=== PATIENT | male | born 1970 | race Caucasian/White ===

== ENCOUNTER 2017-08-10 09:13 | Observation (INO) ==
--- NOTE | 2017-08-10 09:20 | Emergency Department Note ---
Disposition Clinical Impression: Acute exacerbation of chronic obstructive airways disease Disposition: Home, Self-Care Condition: Fair Referrals: NONE,PCP [Primary Care Provider] - Forms: ED Satisfaction Letter SOB HPI - General Chief Complaint: ED Shortness of Breath/Dyspnea Stated Complaint: SOB/cough Time Seen by Provider: 08/10/17 09:15 Source: patient Mode of arrival: private vehicle Limitations: no limitations Nursing Notes Reviewed: Yes Vital Signs Reviewed: Yes - History of Present Illness The patient relates he started on Thursday, 2 days ago, shortness of breath and cough. The cough has remained nonproductive but is described as deep and rattling. He states he has a rattle more on the right side and he "sounds like a Lion" when he is breathing and laying on his right side. Relates he does have a history of COPD, asthma as well as CHF. He is diabetic and his blood sugars were 97 this morning. He has been doing some aerosols at home about every 6 hours without much relief. He states he just had his flu shot on August 04. Denies any known change in weight or any leg swelling. He thinks his feet might develop a little puffy this morning. He states he has had some chills and sweats but no definite fevers. He did have some nausea and vomited twice on Thursday. He has not been having abdominal pain or diarrhea. He denies any chest pain other than feeling as if his right chest is "on fire" when he coughs. He denies any ill exposures or exposure to respiratory irritant. He has not been having jaw, back or arm pain. He denies any recent change in medications. Pt Subjective Complaint: shortness of breath, cough Onset (ago): day(s) (2) Context: recent illness Severity: moderate, severe Consistency/Duration: gradually worsening Improves with: rest, bronchodilators Worsens with: exertion, coughing Known history of: COPD, asthma, congestive heart failure, diabetes Associated symptoms: Reports: chest pain (Burning in the right chest with the cough or deep breath), pain with inspiration, cough, wheezing, nausea/vomiting ( Thursday). Denies: fever, sputum production (Deep rattling), orthopnea, lower extremity pain, polyuria, polydipsia, parasthesias, palpitations, hemoptysis, diaphoresis, syncope, abdominal pain, rash Treatment prior to arrival: bronchodilator Cough present: Yes Cough Description: Voluntary, Non-Productive, Hacking, Rattling, Wheezy Cough Frequency: Intermittent Sputum production: No - Related Data Home oxygen amount: none Home Medications Medication Instructions Recorded Confirmed Albuterol Sulfate [Albuterol 2 puff IH Q4H PRN 06/01/15 08/10/17 Inhaler] Allopurinol [Zyloprim 100 MG] 100 mg PO BID 06/01/15 08/10/17 Atorvastatin [Lipitor] 20 mg PO HS 06/01/15 08/10/17 Lisinopril [Zestril] 20 mg PO DAILY 06/01/15 08/10/17 Metformin [Glucophage] 1,000 mg PO BIDWM 06/01/15 08/10/17 Metoprolol [Lopressor] 50 mg PO BID 06/01/15 08/10/17 Multivitamin/Iron/Folic Acid 1 each PO DAILY 06/01/15 08/10/17 [Centrum Complete Multivit Tab] Potassium Chloride 20 meq PO DAILY 06/01/15 08/10/17 Pregabalin [Lyrica] 150 mg PO BID 06/01/15 08/10/17 Oxycodone HCl/Acetaminophen 1 each PO TID PRN 10/19/16 08/10/17 [Percocet 7.5-325 mg Tablet] Fluticasone/Salmeterol [Advair 1 each IH BID 11/21/16 08/10/17 250-50 Diskus] Furosemide [Lasix] 20 mg PO BID 11/21/16 08/10/17 Tiotropium [Spiriva] 18 mcg IH DAILY 11/21/16 08/10/17 Trazodone HCl 150 mg PO HS 11/21/16 08/10/17 FentaNYL PATCH [Duragesic] 75 mcg TD Q72H 08/10/17 08/10/17 Allergies Allergy/AdvReac Type Severity Reaction Status Date / Time hydrocodone [From Lortab] AdvReac Vomiting Verified 01/04/17 15:08 morphine AdvReac Headache Verified 01/04/17 15:08 NSAIDS (Non-Steroidal AdvReac Nausea Verified 01/04/17 15:08 Anti-Inflamma All systems ED: reviewed and negative except as stated. Past Medical History - Past Medical History Attestation: Yes The following information was validated with the patient. Source: patient, old records reviewed, nursing notes reviewed Medical history: Reports: asthma, CHF, COPD, diabetes, hyperlipidemia, hypertension, kidney stones, renal disease, other Surgical history: Reports: other Psychiatric history: Reports: anxiety, depression, panic disorder, PTSD - Social History Smoking Status: Never smoker Smokeless Tobacco Status: No Alcohol use: Reports: none Drug use: Reports: none Physical Exam - General Limitations: no limitations General appearance: alert, in no apparent distress - Head Head exam: atraumatic, normocephalic, normal inspection - Eye Eye exam: Present: normal appearance, PERRL, EOMI. Absent: scleral icterus, conjunctival injection - ENT ENT exam: normal exam, normal oropharynx, mucous membranes moist - Neck Neck exam: Present: normal inspection, full ROM, trachea midline - Chest Chest inspection: Present: normal inspection, symmetric chest wall rise. Absent : tenderness - Respiratory Respiratory exam: Present: wheezes, prolonged expiratory phase. Absent: respiratory distress, accessory muscle use - Cardiovascular Cardiovascular exam: Present: regular rate, normal rhythm, normal heart sounds. Absent: tachycardia - Abdominal Exam Abdominal exam: Present: soft, Non-Tender, normal bowel sounds. Absent: tenderness, distention, guarding, rebound, rigidity - Extremities Exam Extremities exam: Present: normal inspection, full ROM, normal capillary refill. Absent: tenderness, pedal edema, calf tenderness - Expanded Lower Extremity Exam Neurovascular/Tendon exam: Present: normal capillary refill. Absent: motor deficit, sensory deficit, tendon deficit Gait: observed and normal - Back Exam Back exam: Present: normal inspection, full ROM. Absent: tenderness - Neurological Exam Neurological exam: Present: alert, oriented X3 - Psychiatric Psychiatric exam: Present: normal affect, normal mood - Skin Skin exam: Present: warm, dry, intact, normal color. Absent: cyanosis, diaphoresis, pallor Course Course Narrative: 1015: With return of lab, EKG and imaging care has been discussed with the patient. He is feeling no better after aerosols and Solu-Medrol. He was saturating 90% on room air while talking with them. At this point I believe he will continued to desaturate and have significant dyspnea and hypoxia if we discharge him to home. He has been started on Rocephin, azithromycin and IV fluids. I have placed a page to Dr. Ellison to help with his patient observation and respiratory treatment. Vital Signs Temperature 98.0 F 08/10/17 09:15 Pulse Rate 86 08/10/17 09:15 Respiratory Rate 20 08/10/17 09:15 Blood Pressure 143/81 08/10/17 09:15 O2 Sat by Pulse Oximetry 98 08/10/17 09:15 Temperature 98.0 F 08/10/17 09:15 Pulse Rate 78 08/10/17 10:07 Respiratory Rate 18 08/10/17 10:07 Blood Pressure 132/78 08/10/17 10:07 O2 Sat by Pulse Oximetry 95 08/10/17 10:10 Oxygen Delivery Oxygen Delivery Room Air Shortness of Breath/Dyspnea - Differential Diagnosis Likely: acute exacerbation of chronic obstructive airways disease, congestive heart failure, pneumonia, asthma with exacerbation - Medical Records Medical records reviewed: Yes I reviewed the patient's medical records. - Lab Data Lab results reviewed: Yes I reviewed the patient's lab results. Lab results narrative: Influenza A and influenza B are negative on rapid swab. Result diagrams: 08/10/17 09:30 08/10/17 09:30 Lab Results 08/10/17 08/10/17 08/10/17 Range/Units 09:30 09:30 09:30 WBC 8.8 (4.3-11.1) K/mcL RBC 5.56 H (4.19-5.50) M/mcL Hgb 14.8 (12.9-16.9) g/dL Hct 45.8 (37.5-50.1) % MCV 82.4 L (83.0-100.0) fL MCH 26.6 L (28.0-33.3) pg MCHC 32.3 (31.6-35.5) g/dL RDW 16.0 H (11.5-14.5) % Plt Count 212 (140-400) K/mcL MPV 11.2 (9.4-12.4) fL Immature Gran % 0.6 (0-4) % Seg Neutrophils % 86.2 % Lymphocytes % 6.0 % Monocytes % 6.4 % Eosinophils % 0.3 % Basophils % 0.5 % Neutrophils # 7.6 (1.6-8.9) K/mcL Lymphocytes # 0.5 L (0.6-4.6) K/mcL Monocytes # 0.6 (0.0-1.3) K/mcL Eosinophils # 0.0 (0.0-0.6) K/mcL Basophils # 0.0 (0.0-0.2) K/mcL Sodium 142 (136-145) mEq/L Potassium 4.1 (3.5-4.5) mEq/L Chloride 107 (98-109) mEq/L Carbon Dioxide 24 (19-29) mEq/L BUN 13 (8-26) mg/dL Creatinine 1.09 (0.72-1.25) mg/dL Est GFR ( Amer) > 60 (> 60) Est GFR (Non-Af Amer) > 60 (> 60) BUN/Creatinine Ratio 12 (6-26) Glucose 129 H (70-99) mg/dL Calculated Osmolality 296 (280-300) Lactic Acid 1.9 (0.5-2.2) mmol/L Calcium 10.0 (8.6-10.8) mg/dL Troponin I (0-0.03) ng/mL B-Natriuretic Peptide (0-100) pg/mL 08/10/17 08/10/17 Range/Units 09:30 09:30 WBC (4.3-11.1) K/mcL RBC (4.19-5.50) M/mcL Hgb (12.9-16.9) g/dL Hct (37.5-50.1) % MCV (83.0-100.0) fL MCH (28.0-33.3) pg MCHC (31.6-35.5) g/dL RDW (11.5-14.5) % Plt Count (140-400) K/mcL MPV (9.4-12.4) fL Immature Gran % (0-4) % Seg Neutrophils % % Lymphocytes % % Monocytes % % Eosinophils % % Basophils % % Neutrophils # (1.6-8.9) K/mcL Lymphocytes # (0.6-4.6) K/mcL Monocytes # (0.0-1.3) K/mcL Eosinophils # (0.0-0.6) K/mcL Basophils # (0.0-0.2) K/mcL Sodium (136-145) mEq/L Potassium (3.5-4.5) mEq/L Chloride (98-109) mEq/L Carbon Dioxide (19-29) mEq/L BUN (8-26) mg/dL Creatinine (0.72-1.25) mg/dL Est GFR ( Amer) (> 60) Est GFR (Non-Af Amer) (> 60) BUN/Creatinine Ratio (6-26) Glucose (70-99) mg/dL Calculated Osmolality (280-300) Lactic Acid (0.5-2.2) mmol/L Calcium (8.6-10.8) mg/dL Troponin I 0.00 (0-0.03) ng/mL B-Natriuretic Peptide 63 (0-100) pg/mL - Radiology Data Radiology results reviewed: Yes I reviewed the patient's radiology results. Single view chest x-ray is performed. This does not demonstrate evidence for infiltrate, effusion, pneumothorax, foreign body or significant heart failure. Patient has some patchy increased interstitial markings consistent with possible mild pulmonary edema. The cardiac silhouette is normal. I do not see abnormality to the osseous structures of the chest. This is on my interpretation. Impressions Chest X-Ray 08/10/17 09:24 IMPRESSION: No evidence for acute cardiopulmonary process. D/ / 08/10/2017 09:49:05 Ej Levy MD / Georgina Connors Interpreting Provider: Ej Levy MD - EKG Data EKG attestation: Yes I reviewed and interpreted this EKG. EKG shows normal: Reports: sinus rhythm, intervals, QRS complexes, ST-T waves Rate: Reports: normal (72) [place]/QRS: Reports: left axis deviation Interpretation: Reports: no acute changes, nonspecific ST-T wave changes
[2017-08-10] MEDS ORDERED: Ipratropium/Albuterol Neb 3 ML IH ONE (09:24)
[2017-08-10] MEDS ORDERED: methylPREDNISolone 125 MG/2 ML VIAL IVP ONE (09:27)
[2017-08-10 09:43] LABS: Basophils % 0.5 %; Eosinophils % 0.3 %; Hematocrit 45.8 % (37.5-50.1); Hemoglobin 14.8 g/dL (12.9-16.9); Immature Granulocytes % 0.6 % (0-4); Lymphocytes # 0.5 K/mcL (0.6-4.6); Mean Corpuscular HGB Conc 32.3 g/dL (31.6-35.5); Mean Corpuscular Hemoglobin 26.6 pg (28.0-33.3); Mean Corpuscular Volume 82.4 fL (83.0-100.0); Mean Platelet Volume 11.2 fL (9.4-12.4); Monocytes # 0.6 K/mcL (0.0-1.3); Monocytes % 6.4 %; Neutrophils # 7.6 K/mcL (1.6-8.9); Platelet Count 212 K/mcL (140-400); Red Blood Count 5.56 M/mcL (4.19-5.50); Segmented Neutrophils % 86.2 %
[2017-08-10 09:54] LABS: BUN/Creatinine Ratio 12 (6-26); Blood Urea Nitrogen 13 mg/dL (8-26); Carbon Dioxide 24 mEq/L (19-29); Chloride 107 mEq/L (98-109); Glucose 129 mg/dL (70-99); Osmolality,Calculated 296 (280-300); Potassium 4.1 mEq/L (3.5-4.5); Sodium 142 mEq/L (136-145); eGFR For African Americans > 60 (> 60); eGFR For Non-African Americans > 60 (> 60)
[2017-08-10] MEDS ORDERED: 0.9 % Sodium Chloride 1,000 ML IVC SCH ×2 (10:15→11:07)
[2017-08-10] MEDS ORDERED: cefTRIAXone 1,000 MG in Water for inj. (sterile) 10 ML IVP SCH (10:16)
[2017-08-10] MEDS ORDERED: Azithromycin 500 MG in D5% in Water 250 ML IVPB SCH (10:16)
[2017-08-10] MEDS ORDERED: Dextrose Gel 15 GM PO PRN ×2 (11:07)
[2017-08-10] MEDS ORDERED: D5% in Water 1,000 ML IVC PRN (11:07)
[2017-08-10] MEDS ORDERED: MOM Conc 10 ML UD.LIQ PO PRN (11:07)
[2017-08-10] MEDS ORDERED: *HR* Dextrose 50 % in Water (Syg) 50 ML SYRINGE IVP PRN (11:07)
[2017-08-10] MEDS ORDERED: *HR* FentaNYL PATCH 75 MCG PATCH TD SCH (11:07)
[2017-08-10] MEDS ORDERED: Albuterol 2.5 MG/3 ML NEBULIZER IH PRN (11:07)
[2017-08-10] MEDS ORDERED: Acetaminophen 325 MG TABLET PO PRN (11:07)
[2017-08-10] MEDS ORDERED: Ondansetron 4 MG/2 ML VIAL IVP PRN (11:07)
[2017-08-10] MEDS ORDERED: Naloxone 0.4 MG/ML INJ IVP PRN (11:07)
[2017-08-10] MEDS: *HR* OxyCODONE/APAP 7.5/325 TABLET PO PRN ×2 (12:59→22:33)
[2017-08-10] MEDS: Insulin LISPRO 300 UNITS/3 ML VIAL SQ SCH ×2 (13:04→16:48)
--- NOTE | 2017-08-10 15:42 | Internal Med History&Physical ---
Date of Encounter: 08/10/17 Time of Encounter: 15:15 Assessment and Plan (1) Bronchitis Current visit: Yes Status: Acute He has been started on Rocephin and Zithromax. I will add lactobacillus and Tessalon. (2) Hypertension Current visit: No Status: Acute Continue lisinopril and Lopressor. Qualifiers: Hypertension type: essential hypertension Qualified Code(s): I10 - Essential (primary) hypertension Internal Medicine - H&P: HPI Chief complaint: Dyspnea and cough Admitted From: Home Plans for Post Hospital Care: Home History of present illness: Mr. Rosario is a 46 year old male who came to emergency room stating he had dyspnea and cough increasing over the preceding 2 days. The cough is minimally productive and he had a slight sore throat. He had 2 episodes of vomiting on August 08. He did not improve so came to emergency room today and was evaluated. He had borderline hypoxemia and left shift on WBC differential. He was admitted to [facility] floor for ongoing care needs. His respiratory history is significant for having smoked from age [age] and then restarting smoking approximately one year ago. He smokes up to one pack per day. He has diagnoses of asthma and COPD. He has LIBRADO and uses CPAP at bedtime Past Med Surg Social Fam HX - Past Medical History Medical history: asthma, CHF, COPD, diabetes, hyperlipidemia, hypertension, kidney stones, renal disease, other Psychiatric history: anxiety, depression, panic disorder, PTSD - Past Surgical History Surgical History: other - Social History Smoking Status: Current every day smoker Packs per day: 1 Smokeless Tobacco Status: No Alcohol use: none Drug use: none - Family History Mother Living Status: Father Living Status: Hx Family Cardiac Disorders: Yes Internal Medicine - H&P: Meds Albuterol Sulfate [Albuterol Inhaler] 2 puff IH Q4H PRN 06/01/15 [History] Allopurinol [Zyloprim 100 MG] 100 mg PO BID 06/01/15 [History] Atorvastatin [Lipitor] 20 mg PO HS 06/01/15 [History] Lisinopril [Zestril] 20 mg PO DAILY 06/01/15 [History] Metformin [Glucophage] 1,000 mg PO BIDWM 06/01/15 [History] Metoprolol [Lopressor] 50 mg PO BID 06/01/15 [History] Multivitamin/Iron/Folic Acid [Centrum Complete Multivit Tab] 1 each PO DAILY [History] Potassium Chloride 20 meq PO DAILY 06/01/15 [History] Pregabalin [Lyrica] 150 mg PO BID 06/01/15 [History] Oxycodone HCl/Acetaminophen [Percocet 7.5-325 mg Tablet] 1 each PO TID PRN 10/19 [History] Fluticasone/Salmeterol [Advair 250-50 Diskus] 1 each IH BID 11/21/16 [History] Furosemide [Lasix] 20 mg PO BID 11/21/16 [History] Tiotropium [Spiriva] 18 mcg IH DAILY 11/21/16 [History] Trazodone HCl 150 mg PO HS 11/21/16 [History] FentaNYL PATCH [Duragesic] 75 mcg TD Q72H 08/10/17 [History] 3 Allergy/AdvReac Type Severity Reaction Status Date / Time hydrocodone [From Lortab] AdvReac Vomiting Verified 01/04/17 15:08 morphine AdvReac Headache Verified 01/04/17 15:08 NSAIDS (Non-Steroidal AdvReac Nausea Verified 01/04/17 15:08 Anti-Inflamma All Systems PM: A 10-system review of systems was performed and is negative for pertinent findings except as documented above in the HPI. Review of systems: Gen.: His weight has decreased from approximately 400 pounds in 2013 to present weight of approximately 300 pounds, intentionally Cardiovascular: He has hypertension but no CO DVT or pulmonary embolus. Echocardiogram done 10/13/2015 showed LVEF is 60%. There was slight LAE at 4.1 cm. Intraventricular septum and posterior wall thickness measurements were normal at 1.00 cm. The E/A ratio is 1.2. There was moderate diastolic dysfunction felt to be present. He reports a negative heart catheter done approximately 2011. Respiratory: As per history of present illness GI: Denies disorder with his liver gallbladder or exocrine pancreas : He had kidney stone in 2009 without recurrence. He has CKD stage 2-3 but does not follow with a healthcare analyst. He has no other known kidney or bladder disorders Neurologic: He denies large distribution strokes or seizures. Endocrine: He was diagnosed with DM 2 in 2010. He has hyperlipidemia but no known thyroid disease Hematology/oncology: He has had anemia in the past but that is resolved. He denies internal malignancies or other blood disorders Psychiatric: He has occasional anxiety but no significant depression or other mental health issues Musk skeletal: He has gout. Uric acid level was 8.9 on 05/12/2017. 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 - Constitutional Vitals: Temp Pulse Resp BP Pulse Ox 97.8 F 84 22 142/82 96 08/10/17 14:28 08/10/17 14:28 08/10/17 14:28 08/10/17 14:28 08/10/17 14:28 Exam: Enteral: He is A well-developed well-nourished male lying in bed who appears slightly dyspneic HEENT: Head is atraumatic and normocephalic. Eyes: EOMI. There is no scleral icterus. Mouth: Mucosa is moist. Neck: Supple and nontender. There is no thyromegaly or adenopathy noted. Heart: Regular without murmurs gallops or ectopics Lungs: No wheezes or crackles are heard. Abdomen: Soft and nontender. No masses or guarding noted. Extremities: There is no cyanosis edema or clubbing noted. Dorsalis pedis and posttibial pulses are 1-2 over 2 bilaterally. Neurologic: Mental status: He is talkative and a good historian. Cranial nerves : Smile is symmetric. Forehead wrinkles bilaterally. Tongue protrudes midline. EOMI. Motor: There is no pronator drift. Cerebellar: Finger to nose is intact bilaterally. Skin: Warm and dry Internal Med - H&P Results - Labs CBC & Chem 7: 08/10/17 09:30 08/10/17 09:30
[2017-08-10] MEDS: Ipratropium/Albuterol Neb 3 ML IH SCH ×2 (16:39→21:11)
--- NOTE | 2017-08-10 16:43 | Electrocardiograph Report ---
[address] [address] Test Date: 2017-08-10 Pat Name: Stanley Rosario Department: [id number] Room: [facility] Gender: M Mold Holder: [id number] : 1970 Requested By: Chi Phillips Order Number: [id number] Reading MD: Yesy Gaxiola Measurements Intervals [place] Rate: 72 P: -7 LA: 149 QRS: -44 QRSD: 103 T: 15 QT: 388 QTc: 412 Interpretive Statements SINUS RHYTHM LEFT AXIS DEVIATION BORDERLINE IVCD Electronically Signed On 08-10-2017 16:42:00 EDT by Yesy Gaxiola
[2017-08-10] MEDS: *HR* Metformin 500 MG TABLET PO SCH (16:47)
[2017-08-10] MEDS: 0.9 % Sodium Chloride 1,000 ML IVC SCH ×2 (16:47→18:46)
[2017-08-10] MEDS: methylPREDNISolone 125 MG/2 ML VIAL IVP SCH (16:47)
[2017-08-10] MEDS: traZODone 50 MG TABLET PO SCH (22:22)
[2017-08-10] MEDS: Furosemide 20 MG TABLET PO SCH (22:23)
[2017-08-10] MEDS: Lactobacillus 1 EACH CAP.SPRINK PO SCH (22:23)
[2017-08-10] MEDS: Pregabalin 75 MG CAPSULE PO SCH (22:23)
[2017-08-10] MEDS: Benzonatate 100 MG CAPSULE PO SCH (22:24)
[2017-08-11] MEDS: methylPREDNISolone 125 MG/2 ML VIAL IVP SCH ×3 (00:30→17:10)
[2017-08-11] MEDS: Ipratropium/Albuterol Neb 3 ML IH SCH ×4 (04:25→22:05)
[2017-08-11] MEDS: Insulin LISPRO 300 UNITS/3 ML VIAL SQ SCH ×3 (08:15→17:16)
[2017-08-11] MEDS: Lactobacillus 1 EACH CAP.SPRINK PO SCH ×2 (08:21→20:19)
[2017-08-11] MEDS: Pregabalin 75 MG CAPSULE PO SCH ×2 (08:21→20:19)
[2017-08-11] MEDS: Furosemide 20 MG TABLET PO SCH ×2 (08:21→20:21)
[2017-08-11] MEDS: Lisinopril 20 MG TABLET PO SCH (08:22)
[2017-08-11] MEDS: Benzonatate 100 MG CAPSULE PO SCH ×3 (08:22→20:21)
[2017-08-11] MEDS: 0.9 % Sodium Chloride 1,000 ML IVC SCH (08:22)
[2017-08-11] MEDS: *HR* Metformin 500 MG TABLET PO SCH ×2 (08:22→17:11)
[2017-08-11] MEDS: cefTRIAXone 1,000 MG in Water for inj. (sterile) 10 ML IVP SCH (08:23)
[2017-08-11] MEDS: *HR* OxyCODONE/APAP 7.5/325 TABLET PO PRN ×2 (08:36→17:10)
--- NOTE | 2017-08-11 11:05 | Internal Med Progress Note ---
Date of Encounter: 08/11/17 Time of Encounter: 10:55 - Assessment and plan (1) Bronchitis Current Visit: Yes Status: Acute Assessment and plan: August 11. Continue Rocephin, Zithromax, lactobacillus, Mucinex, and Tessalon (2) Hypertension Current Visit: No Status: Acute Assessment and plan: August 11. Continue lisinopril and Lopressor Qualifiers: Hypertension type: essential hypertension Qualified Code(s): I10 - Essential (primary) hypertension - Subjective Interval history: August 11. He has no new complaints. He states he does not feel significantly improved from yesterday. - Constitutional Vitals: Temp Pulse Resp BP Pulse Ox 98.0 F 51 18 118/64 95 08/11/17 10:49 08/11/17 10:49 08/11/17 10:49 08/11/17 10:49 08/11/17 10:49 Exam: He is resting fairly comfortably in bed and appears in no acute distress. He has minimal dyspnea on conversation. I reviewed his medications and lab results. Internal Medicine: Result - Labs CBC & Chem 7: 08/10/17 09:30 08/10/17 09:30 Consult Discharge Plan - Plan Referrals: NONE,PCP [Primary Care Provider] - 1 week
[2017-08-11] MEDS: Azithromycin 500 MG in D5% in Water 250 ML IVPB SCH (11:16)
[2017-08-11] MEDS: traZODone 50 MG TABLET PO SCH (20:20)
[2017-08-11] MEDS: Clotrimazole 1% CRM 15 GM TUBE TP SCH (20:37)
[2017-08-12] MEDS: *HR* OxyCODONE/APAP 7.5/325 TABLET PO PRN ×2 (00:53→09:16)
[2017-08-12] MEDS: methylPREDNISolone 125 MG/2 ML VIAL IVP SCH ×2 (00:54→08:32)
[2017-08-12] MEDS: Ipratropium/Albuterol Neb 3 ML IH SCH ×2 (03:56→11:12)
[2017-08-12] MEDS: Insulin LISPRO 300 UNITS/3 ML VIAL SQ SCH (08:32)
[2017-08-12] MEDS: *HR* Metformin 500 MG TABLET PO SCH (08:32)
[2017-08-12] MEDS: Lactobacillus 1 EACH CAP.SPRINK PO SCH (08:33)
[2017-08-12] MEDS: Pregabalin 75 MG CAPSULE PO SCH (08:34)
[2017-08-12] MEDS: Furosemide 20 MG TABLET PO SCH (08:34)
[2017-08-12] MEDS: Benzonatate 100 MG CAPSULE PO SCH (08:36)
[2017-08-12] MEDS: Lisinopril 20 MG TABLET PO SCH (08:36)
[2017-08-12] MEDS: cefTRIAXone 1,000 MG in Water for inj. (sterile) 10 ML IVP SCH (08:49)
[2017-08-12] MEDS: Azithromycin 500 MG in D5% in Water 250 ML IVPB SCH (08:55)
[2017-08-12] MEDS: Clotrimazole 1% CRM 15 GM TUBE TP SCH (09:12)
--- NOTE | 2017-08-12 10:52 | Discharge Summary ---
Date of Encounter: 08/12/17 Time of Encounter: 10:25 - Discharge Diagnosis (1) Bronchitis Priority: Primary Status: Acute (2) Hypertension Priority: Secondary Status: Acute Qualifiers: Hypertension type: essential hypertension Qualified Code(s): I10 - Essential (primary) hypertension - Discharge Medications Prescriptions: Cefuroxime PO [Ceftin] 500 mg PO Q12HR #4 tablet Azithromycin 250 mg PO DAILY #2 tablet Lactobacillus [Culturelle] 1 each PO BID #4 cap.sprink predniSONE [PredniSONE] 10 mg PO BIDWM #4 tablet Home Medications: Albuterol Sulfate [Albuterol Inhaler] 2 puff IH Q4H PRN 06/01/15 [History] Allopurinol [Zyloprim 100 MG] 100 mg PO BID 06/01/15 [History] Atorvastatin [Lipitor] 20 mg PO HS 06/01/15 [History] Lisinopril [Zestril] 20 mg PO DAILY 06/01/15 [History] Metformin [Glucophage] 1,000 mg PO BIDWM 06/01/15 [History] Metoprolol [Lopressor] 50 mg PO BID 06/01/15 [History] Multivitamin/Iron/Folic Acid [Centrum Complete Multivit Tab] 1 each PO DAILY [History] Potassium Chloride 20 meq PO DAILY 06/01/15 [History] Pregabalin [Lyrica] 150 mg PO BID 06/01/15 [History] Oxycodone HCl/Acetaminophen [Percocet 7.5-325 mg Tablet] 1 each PO TID PRN 10/19 [History] Fluticasone/Salmeterol [Advair 250-50 Diskus] 1 each IH BID 11/21/16 [History] Furosemide [Lasix] 20 mg PO BID 11/21/16 [History] Tiotropium [Spiriva] 18 mcg IH DAILY 11/21/16 [History] Trazodone HCl 150 mg PO HS 11/21/16 [History] FentaNYL PATCH [Duragesic] 75 mcg TD Q72H 08/10/17 [History] Azithromycin 250 mg PO DAILY #2 tablet 08/12/17 [Rx] Cefuroxime PO [Ceftin] 500 mg PO Q12HR #4 tablet 08/12/17 [Rx] Lactobacillus [Culturelle] 1 each PO BID #4 cap.sprink 08/12/17 [Rx] predniSONE [PredniSONE] 10 mg PO BIDWM #4 tablet 08/12/17 [Rx] Allergies/Adverse Reactions: 3 Allergy/AdvReac Type Severity Reaction Status Date / Time hydrocodone [From Lortab] AdvReac Vomiting Verified 01/04/17 15:08 morphine AdvReac Headache Verified 01/04/17 15:08 NSAIDS (Non-Steroidal AdvReac Nausea Verified 01/04/17 15:08 Anti-Inflamma Date of admission: 08/10/17 10:51 Primary care physician: PCP NONE - Patient Status Disposition: Home, Self-Care Condition: Fair Overall status at discharge: patient is progressing back to baseline - Discharge Instructions Follow Up With: Werner Bai DO [Resident] - 1 week - Diet and Activity Activity: resume usual activities as tolerated Diet: advance to your usual diet Hospital course: Mr. Rosario is a 46 year old male who came to emergency room stating he had dyspnea and cough increasing over the preceding 2 days. The cough is minimally productive and he had a slight sore throat. He had 2 episodes of vomiting on August 08. He did not improve so came to emergency room today and was evaluated. He had borderline hypoxemia and left shift on WBC differential. He was admitted to [facility] floor for ongoing care needs. Initial orders were written by the emergency room physician. I saw him on August 10 and performed a history and physical. He was started on Rocephin and Zithromax with lactobacillus and Tessalon. He had gradual improvement in bronchitis symptoms. On August 12 he felt stable for discharge home. He will continuee with Ceftin and Zithromax with lactobacillus and prednisone for 2 additional days after discharge. I encouraged him to become a nonsmoker. A 6 minute walk will be done to evaluate for home oxygen needs. - Time Spent with Patient Total time spent providing and/or coordinating discharge services: - Constitutional Vitals: Temp Pulse Resp BP Pulse Ox 98.3 F 60 18 120/62 92 08/12/17 07:24 08/12/17 08:30 08/12/17 07:24 08/12/17 08:30 08/12/17 09:00
[2017-08-12 10:55] VITALS: BP 143/68
== END 2017-08-12 12:25 | disposition home or self-care (01) ==
LOC: EMEROOPIK 09:13 → INPPIK 09:13
PROVIDERS: ADMIT Internal Medicine; ATTEND Internal Medicine

== ENCOUNTER 2021-10-24 13:15 | Inpatient (IN) ==
[2021-10-24 13:32] LABS: Basophils # 0.1 K/mcL (0.0-0.2); Basophils % 0.9 %; Eosinophils # 0.1 K/mcL (0.0-0.6); Eosinophils % 0.4 %; Hematocrit 45.6 % (37.5-50.1); Hemoglobin 13.6 g/dL (12.9-16.9); Immature Granulocytes % 0.9 % (0-4); Lymphocytes # 0.3 K/mcL (0.6-4.6); Lymphocytes % 2.2 %; Mean Corpuscular HGB Conc 29.8 g/dL (31.6-35.5); Mean Corpuscular Hemoglobin 26.5 pg (28.0-33.3); Mean Corpuscular Volume 88.7 fL (83.0-100.0); Mean Platelet Volume 9.6 fL (9.4-12.4); Monocytes # 0.9 K/mcL (0.0-1.3); Monocytes % 7.4 %; Neutrophils # 10.3 K/mcL (1.6-8.9); Platelet Count 190 K/mcL (140-400); Red Blood Count 5.14 M/mcL (4.19-5.50); Segmented Neutrophils % 88.2 %; White Blood Count 11.7 K/mcL (4.3-11.1)
[2021-10-24 13:43] LABS: INR 3.3; Prothrombin Time 36.1 Seconds (9.4-12.1)
[2021-10-24 13:45] LABS: Activated Partial Thrombo Time 45.6 Seconds (26.0-36.0)
[2021-10-24 13:49] LABS: BUN/Creatinine Ratio 11 (6-26); Blood Urea Nitrogen 16 mg/dL (6-20); Calcium 8.5 mg/dL (8.6-10.3); Carbon Dioxide 34 mEq/L (23-29); Chloride 99 mEq/L (98-107); Glucose 117 mg/dL (70-105); Magnesium 1.7 mg/dL (1.6-2.6); Osmolality,Calculated 292 (280-300); Potassium 3.9 mEq/L (3.5-5.1); Sodium 140 mEq/L (136-145); eGFR For African Americans > 60 (> 60); eGFR For Non-African Americans 53 (> 60)
[2021-10-24 13:54] LABS: Troponin I < 0.03 ng/mL (< 0.04)
[2021-10-24] MEDS ORDERED: Isovue-370 500 ML BOTTLE IVP ONE (14:05)
[2021-10-24 14:07] LABS: Thyroid Stimulating Hormone 1.401 mcIU/mL (0.340-5.600)
[2021-10-24] MEDS ORDERED: Furosemide 40 MG/4 ML VIAL IVP ONE (15:15)
[2021-10-24] MEDS ORDERED: Dexamethasone Sodium Phos/PF 10 MG/ML VIAL IVP ONE (16:25)
[2021-10-24] MEDS ORDERED: *HR* OxyCODONE/APAP 10/325 TABLET PO ONE (18:33)
[2021-10-24] MEDS ORDERED: Morphine Sulfate ER (12 HR) 15 MG TABLET.ER PO ONE (19:15)
[2021-10-25] MEDS ORDERED: *HR* OxyCODONE/APAP 10/325 TABLET PO PRN (03:42)
[2021-10-25] MEDS ORDERED: Ipratropium/Albuterol Neb 3 ML IH PRN (03:42)
[2021-10-25] MEDS ORDERED: Albuterol 2.5 MG/3 ML NEBULIZER IH PRN (03:42)
[2021-10-25] MEDS ORDERED: carvediloL 6.25 MG TABLET PO SCH (08:00)
[2021-10-25] MEDS ORDERED: Furosemide 40 MG TABLET PO SCH (08:00)
[2021-10-25] MEDS ORDERED: Morphine Sulfate ER (12 HR) 15 MG TABLET.ER PO SCH (09:00)
[2021-10-25] MEDS ORDERED: lisinopriL 20 MG TABLET PO SCH (09:00)
[2021-10-25] MEDS ORDERED: Naloxone 0.4 MG/ML INJ IVP PRN (10:33)
[2021-10-25] MEDS ORDERED: *HR* HYDROcodone/Acet 5/325 mg TABLET PO PRN (10:33)
[2021-10-25] MEDS ORDERED: Acetaminophen 325 MG TABLET PO PRN (10:33)
[2021-10-25 11:04] LABS: Hematocrit 44.8 % (37.5-50.1); Hemoglobin 13.6 g/dL (12.9-16.9); Mean Corpuscular HGB Conc 30.4 g/dL (31.6-35.5); Mean Corpuscular Hemoglobin 26.8 pg (28.0-33.3); Mean Corpuscular Volume 88.4 fL (83.0-100.0); Mean Platelet Volume 9.7 fL (9.4-12.4); Platelet Count 172 K/mcL (140-400); Red Blood Count 5.07 M/mcL (4.19-5.50); Red Cell Distribution Width 15.8 % (11.5-14.5); White Blood Count 5.2 K/mcL (4.3-11.1)
[2021-10-25] MEDS ORDERED: hydrOXYzine pamoate 25 MG CAPSULE PO PRN (11:16)
[2021-10-25 11:21] LABS: Alanine Aminotransferase 15 Units/L (7-52); Albumin 3.6 g/dL (3.5-5.7); Albumin/Globulin Ratio 1.1 (1.1-2.2); Alkaline Phosphatase 81 Units/L (34-104); Aspartate Amino Transferase 18 Units/L (13-39); BUN/Creatinine Ratio 15 (6-26); Bilirubin,Total 0.7 mg/dL (0.3-1.0); Blood Urea Nitrogen 21 mg/dL (6-20); Calcium 8.5 mg/dL (8.6-10.3); Carbon Dioxide 32 mEq/L (23-29); Chloride 99 mEq/L (98-107); Globulin 3.4 g/dL (2.4-3.5); Glucose 184 mg/dL (70-105); Magnesium 1.8 mg/dL (1.6-2.6); Osmolality,Calculated 296 (280-300); Potassium 3.9 mEq/L (3.5-5.1); Sodium 139 mEq/L (136-145); eGFR For African Americans > 60 (> 60); eGFR For Non-African Americans 55 (> 60)
[2021-10-25 13:37] LABS: C-Reactive Protein 18 mg/L (Less than 10)
[2021-10-25] MEDS: *HR* OxyCODONE/APAP 10/325 TABLET PO PRN (13:50)
[2021-10-25 13:55] LABS: Ferritin 104 ng/mL (20-250)
[2021-10-25] MEDS ORDERED: Perflutren Lipid Microsphere 1.3 ML in 0.9 % Sodium Chloride 8.7 ML IVP PRN (14:50)
[2021-10-25] MEDS ORDERED: Remdesivir 200 MG in 0.9 % Sodium Chloride 100 ML IVPB ONE (15:00)
[2021-10-25] MEDS: Dexamethasone Sodium Phos/PF 10 MG/ML VIAL IVP SCH (15:50)
[2021-10-25] MEDS: Furosemide 40 MG TABLET PO SCH (16:16)
[2021-10-25] MEDS: carvediloL 6.25 MG TABLET PO SCH (16:16)
[2021-10-25] MEDS ORDERED: D5% in Water 1,000 ML IVC PRN (17:33)
[2021-10-25] MEDS ORDERED: *HR* Dextrose 50 % in Water (Syg) 50 ML SYRINGE IVP PRN (17:33)
[2021-10-25] MEDS ORDERED: Dextrose Gel 15 GM/37.5 ML TUBE PO PRN ×2 (17:33)
[2021-10-25] MEDS: *HR* Rivaroxaban 10 MG TABLET PO SCH (18:06)
[2021-10-25] MEDS: Budesonide/Formoterol 80/4.5 1 PUFF INH IH SCH (20:37)
[2021-10-25] MEDS ORDERED: Mirtazapine 15 MG TABLET PO SCH (21:00)
[2021-10-25 21:29] LABS: Estimated Average Glucose 126 mg/dl
[2021-10-25] MEDS: Pregabalin 75 MG CAPSULE PO SCH (21:30)
[2021-10-25] MEDS: traZODone 50 MG TABLET PO SCH (21:30)
[2021-10-25] MEDS: Morphine Sulfate ER (12 HR) 30 MG TABLET.ER PO SCH (21:30)
[2021-10-25] MEDS: Melatonin 3 MG TABLET PO PRN (21:31)
[2021-10-25] MEDS ORDERED: Budesonide/Formoterol 80/4.5 1 PUFF INH IH SCH (22:00)
[2021-10-26] MEDS: Insulin LISPRO 300 UNITS/3 ML VIAL SUBQ SCH ×5 (01:05→19:28)
[2021-10-26] MEDS ORDERED: *HR* Enoxaparin 40 MG/0.4 ML SYRINGE SQ SCH (06:00)
[2021-10-26 08:00] LABS: Hematocrit 43.3 % (37.5-50.1); Mean Corpuscular Hemoglobin 26.2 pg (28.0-33.3); Mean Corpuscular Volume 87.3 fL (83.0-100.0); Mean Platelet Volume 10.5 fL (9.4-12.4); Platelet Count 186 K/mcL (140-400); Red Blood Count 4.96 M/mcL (4.19-5.50); White Blood Count 11.3 K/mcL (4.3-11.1)
[2021-10-26] MEDS ORDERED: Tiotropium 10 INH DOSE IH ONE (08:00)
[2021-10-26] MEDS: Morphine Sulfate ER (12 HR) 30 MG TABLET.ER PO SCH ×2 (08:07→20:44)
[2021-10-26] MEDS: *HR* Rivaroxaban 10 MG TABLET PO SCH (08:07)
[2021-10-26] MEDS: Pregabalin 75 MG CAPSULE PO SCH ×2 (08:07→20:44)
[2021-10-26] MEDS: Furosemide 40 MG TABLET PO SCH ×2 (08:07→16:30)
[2021-10-26] MEDS: carvediloL 6.25 MG TABLET PO SCH ×2 (08:07→16:30)
[2021-10-26] MEDS: Dexamethasone Sodium Phos/PF 10 MG/ML VIAL IVP SCH (08:08)
[2021-10-26] MEDS: *HR* OxyCODONE/APAP 10/325 TABLET PO PRN ×2 (08:08→16:31)
[2021-10-26 08:22] LABS: BUN/Creatinine Ratio 23 (6-26); Blood Urea Nitrogen 24 mg/dL (6-20); Calcium 8.3 mg/dL (8.6-10.3); Carbon Dioxide 33 mEq/L (23-29); Chloride 99 mEq/L (98-107); Glucose 157 mg/dL (70-105); Osmolality,Calculated 293 (280-300); Sodium 138 mEq/L (136-145); eGFR For African Americans > 60 (> 60); eGFR For Non-African Americans > 60 (> 60)
[2021-10-26] MEDS: Aspirin Enteric Coated 81 MG Tablet PO SCH (08:23)
[2021-10-26] MEDS: lisinopriL 20 MG TABLET PO SCH (08:24)
[2021-10-26] MEDS: Tiotropium 10 INH DOSE IH SCH (08:29)
[2021-10-26] MEDS: Budesonide/Formoterol 80/4.5 1 PUFF INH IH SCH ×2 (08:29→20:26)
[2021-10-26 08:41] LABS: Albumin 3.3 g/dL (3.5-5.7); Albumin/Globulin Ratio 1.1 (1.1-2.2); Bilirubin,Total 0.5 mg/dL (0.3-1.0); Total Protein 6.3 g/dL (6.4-8.9)
[2021-10-26] MEDS: allopurinoL 300 MG TABLET PO SCH (08:58)
[2021-10-26 09:29] LABS: Bilirubin,Direct 0.2 mg/dL (0.0-0.2); Bilirubin,Indirect 0.3 mg/dL (0.0-1.0)
[2021-10-26] MEDS: Remdesivir 100 MG in 0.9 % Sodium Chloride 100 ML IVPB SCH (14:31)
[2021-10-26] MEDS: traZODone 50 MG TABLET PO SCH (20:44)
[2021-10-27] MEDS: *HR* OxyCODONE/APAP 10/325 TABLET PO PRN ×3 (00:10→15:22)
[2021-10-27 07:47] LABS: Hematocrit 42.7 % (37.5-50.1); Hemoglobin 13.3 g/dL (12.9-16.9); Mean Corpuscular HGB Conc 31.1 g/dL (31.6-35.5); Mean Corpuscular Hemoglobin 26.8 pg (28.0-33.3); Mean Corpuscular Volume 86.1 fL (83.0-100.0); Mean Platelet Volume 10.3 fL (9.4-12.4); Platelet Count 189 K/mcL (140-400); Red Blood Count 4.96 M/mcL (4.19-5.50); Red Cell Distribution Width 16.2 % (11.5-14.5); White Blood Count 11.4 K/mcL (4.3-11.1)
[2021-10-27 08:07] LABS: BUN/Creatinine Ratio 30 (6-26); Blood Urea Nitrogen 27 mg/dL (6-20); Calcium 8.4 mg/dL (8.6-10.3); Carbon Dioxide 35 mEq/L (23-29); Chloride 99 mEq/L (98-107); Glucose 138 mg/dL (70-105); Magnesium 1.8 mg/dL (1.6-2.6); Osmolality,Calculated 299 (280-300); Potassium 3.6 mEq/L (3.5-5.1); Sodium 141 mEq/L (136-145); eGFR For African Americans > 60 (> 60); eGFR For Non-African Americans > 60 (> 60)
[2021-10-27 08:08] LABS: Albumin 3.2 g/dL (3.5-5.7); Albumin/Globulin Ratio 1.1 (1.1-2.2); Bilirubin,Direct 0.2 mg/dL (0.0-0.2); Bilirubin,Indirect 0.3 mg/dL (0.0-1.0); Bilirubin,Total 0.5 mg/dL (0.3-1.0); Total Protein 6.2 g/dL (6.4-8.9)
[2021-10-27] MEDS: Budesonide/Formoterol 80/4.5 1 PUFF INH IH SCH ×2 (08:33→21:42)
[2021-10-27] MEDS: Tiotropium 10 INH DOSE IH SCH (08:33)
[2021-10-27] MEDS: Aspirin Enteric Coated 81 MG Tablet PO SCH (09:00)
[2021-10-27] MEDS: lisinopriL 20 MG TABLET PO SCH (09:00)
[2021-10-27] MEDS: Pregabalin 75 MG CAPSULE PO SCH ×2 (09:00→20:54)
[2021-10-27] MEDS: Furosemide 40 MG TABLET PO SCH ×2 (09:00→17:39)
[2021-10-27] MEDS: carvediloL 6.25 MG TABLET PO SCH ×2 (09:00→17:39)
[2021-10-27] MEDS: Morphine Sulfate ER (12 HR) 30 MG TABLET.ER PO SCH ×2 (09:00→20:54)
[2021-10-27] MEDS: *HR* Rivaroxaban 10 MG TABLET PO SCH (09:00)
[2021-10-27] MEDS: allopurinoL 300 MG TABLET PO SCH (09:01)
[2021-10-27] MEDS: Dexamethasone Sodium Phos/PF 10 MG/ML VIAL IVP SCH (09:02)
[2021-10-27] MEDS: Insulin LISPRO 300 UNITS/3 ML VIAL SUBQ SCH ×4 (09:03→20:55)
[2021-10-27] MEDS: Remdesivir 100 MG in 0.9 % Sodium Chloride 100 ML IVPB SCH (15:22)
[2021-10-27] MEDS: traZODone 50 MG TABLET PO SCH (20:54)
[2021-10-27] MEDS: Melatonin 3 MG TABLET PO PRN (20:54)
[2021-10-28] MEDS: *HR* OxyCODONE/APAP 10/325 TABLET PO PRN ×3 (04:39→18:50)
[2021-10-28] MEDS: Ondansetron 4 MG/2 ML VIAL IVP PRN (04:49)
[2021-10-28 07:34] LABS: Albumin 3.2 g/dL (3.5-5.7); Albumin/Globulin Ratio 1.1 (1.1-2.2); Bilirubin,Direct 0.2 mg/dL (0.0-0.2); Bilirubin,Indirect 0.4 mg/dL (0.0-1.0); Bilirubin,Total 0.6 mg/dL (0.3-1.0); Globulin 2.8 g/dL (2.4-3.5)
[2021-10-28] MEDS: Tiotropium 10 INH DOSE IH SCH (08:08)
[2021-10-28] MEDS: Budesonide/Formoterol 80/4.5 1 PUFF INH IH SCH ×2 (08:08→21:11)
[2021-10-28] MEDS: Dexamethasone Sodium Phos/PF 10 MG/ML VIAL IVP SCH (09:10)
[2021-10-28] MEDS: Insulin LISPRO 300 UNITS/3 ML VIAL SUBQ SCH ×4 (09:16→22:33)
[2021-10-28] MEDS: Morphine Sulfate ER (12 HR) 30 MG TABLET.ER PO SCH ×2 (09:21→22:35)
[2021-10-28] MEDS: Pregabalin 75 MG CAPSULE PO SCH ×2 (09:21→22:33)
[2021-10-28] MEDS: carvediloL 6.25 MG TABLET PO SCH ×2 (09:21→17:24)
[2021-10-28] MEDS: *HR* Rivaroxaban 10 MG TABLET PO SCH (09:21)
[2021-10-28] MEDS: Furosemide 40 MG TABLET PO SCH ×2 (09:21→17:24)
[2021-10-28] MEDS: allopurinoL 300 MG TABLET PO SCH (09:22)
[2021-10-28] MEDS: Aspirin Enteric Coated 81 MG Tablet PO SCH (09:22)
[2021-10-28] MEDS: lisinopriL 20 MG TABLET PO SCH (09:22)
[2021-10-28] MEDS: Remdesivir 100 MG in 0.9 % Sodium Chloride 100 ML IVPB SCH (15:21)
[2021-10-28] MEDS: traZODone 50 MG TABLET PO SCH (22:34)
[2021-10-28] MEDS: Lactulose Oral Soln 20 GM/30 ML UDC PO SCH (22:35)
[2021-10-29] MEDS: *HR* OxyCODONE/APAP 10/325 TABLET PO PRN ×2 (01:11→12:22)
[2021-10-29] MEDS: Ondansetron 4 MG/2 ML VIAL IVP PRN (01:21)
[2021-10-29 07:41] LABS: Hematocrit 44.2 % (37.5-50.1); Hemoglobin 13.6 g/dL (12.9-16.9); Mean Corpuscular HGB Conc 30.8 g/dL (31.6-35.5); Mean Corpuscular Hemoglobin 26.1 pg (28.0-33.3); Mean Corpuscular Volume 84.7 fL (83.0-100.0); Platelet Count 150 K/mcL (140-400); Red Blood Count 5.22 M/mcL (4.19-5.50); Red Cell Distribution Width 15.8 % (11.5-14.5); White Blood Count 9.7 K/mcL (4.3-11.1)
[2021-10-29 08:28] LABS: Albumin 3.3 g/dL (3.5-5.7); Albumin/Globulin Ratio 1.2 (1.1-2.2); Bilirubin,Direct 0.2 mg/dL (0.0-0.2); Bilirubin,Indirect 0.5 mg/dL (0.0-1.0); Bilirubin,Total 0.7 mg/dL (0.3-1.0); Globulin 2.7 g/dL (2.4-3.5)
[2021-10-29 08:29] LABS: BUN/Creatinine Ratio 34 (6-26); Blood Urea Nitrogen 30 mg/dL (6-20); Calcium 8.3 mg/dL (8.6-10.3); Carbon Dioxide 36 mEq/L (23-29); Chloride 97 mEq/L (98-107); Glucose 133 mg/dL (70-105); Osmolality,Calculated 296 (280-300); Potassium 3.6 mEq/L (3.5-5.1); Sodium 139 mEq/L (136-145); eGFR For African Americans > 60 (> 60); eGFR For Non-African Americans > 60 (> 60)
[2021-10-29] MEDS: Insulin LISPRO 300 UNITS/3 ML VIAL SUBQ SCH ×2 (08:37→12:20)
[2021-10-29 08:41] VITALS: BP 126/79; PULSE 82; RESP 17; TEMP 97.3
[2021-10-29] MEDS ORDERED: dexAMETHasone 4 MG TABLET PO SCH (09:00)
[2021-10-29 09:25] VITALS: O2SAT 97
[2021-10-29] MEDS: carvediloL 6.25 MG TABLET PO SCH (09:26)
[2021-10-29] MEDS: Pregabalin 75 MG CAPSULE PO SCH (09:26)
[2021-10-29] MEDS: Furosemide 40 MG TABLET PO SCH (09:27)
[2021-10-29] MEDS: Morphine Sulfate ER (12 HR) 30 MG TABLET.ER PO SCH (09:27)
[2021-10-29] MEDS: *HR* Rivaroxaban 10 MG TABLET PO SCH (09:27)
[2021-10-29] MEDS: lisinopriL 20 MG TABLET PO SCH (09:27)
[2021-10-29] MEDS: Lactulose Oral Soln 20 GM/30 ML UDC PO SCH (09:28)
[2021-10-29] MEDS: allopurinoL 300 MG TABLET PO SCH (09:28)
[2021-10-29] MEDS: Aspirin Enteric Coated 81 MG Tablet PO SCH (09:28)
[2021-10-29] MEDS: Tiotropium 10 INH DOSE IH SCH (10:41)
[2021-10-29] MEDS: Budesonide/Formoterol 80/4.5 1 PUFF INH IH SCH (10:42)
== END 2021-10-29 14:07 | disposition home or self-care (01) | DRG 177 ==
LOC: EMEROOPIK 13:15 → INPPIK 10-25 13:14
PROVIDERS: ADMIT Family Medicine; ATTEND Family Medicine